=== PATIENT | male | born 1970 | race African-American/Black ===

== ENCOUNTER → 2016-06-05 | Outpatient (CLI) | payer BC | LOC: PCVCIMAG 11:17 | PROVIDERS: ATTEND Internal Medicine | DX: R19.07 Generalized intra-abdominal and pelvic swelling, mass and lump (principal); I42.9 Cardiomyopathy, unspecified; I50.20 Unspecified systolic (congestive) heart failure; I10 Essential (primary) hypertension; R10.30 Lower abdominal pain, unspecified; R59.0 Localized enlarged lymph nodes | CPT/HCPCS: 93926 ==